=== PATIENT | male | born 1990 | race African-American/Black ===

== ENCOUNTER 2016-10-26 17:29 | Emergency (ER) | payer SELFPAY ==
[~2016-10-26] VITALS: Ht 175.3 cm; Wt 61.2 kg
[~2016-10-26 17:29] MED LIST: BUTA1CAP29 PO
[2016-10-26 18:18] VITALS: BP 158/113
[2016-10-26] MEDS ORDERED: ONDA4TAB10 SL (18:35)
--- NOTE | 2016-10-26 18:35 | PHYS DOC ---
Past Medical History Past Medical History: Hypothyroid Additional Past Medical Histor: HYPOTHYROIDISM Past Surgical History: No Surgical History Alcohol Use: Occasionally Drug Use: Marijuana, Opiates Adult General Chief Complaint Chief Complaint: NAUSEA/VOMITING/DIARRHA HPI HPI Patient is a 26 year old with history of hypothyroidism who presents with nausea and vomiting that occurred this morning. Patient denies any symptoms this afternoon. Denies any abdominal pain or diarrhea. He states he has chills. Review of Systems Review of Systems Constitutional: chills [] Eyes: Denies change in visual acuity, redness, or eye pain [] HENT: Denies nasal congestion or sore throat [] Respiratory: Denies cough or shortness of breath [] Cardiovascular: No additional information not addressed in HPI [] GI: nausea, vomiting, : Denies dysuria or hematuria [] Musculoskeletal: Denies back pain or joint pain [] Integument: Denies rash or skin lesions [] Neurologic: Denies headache, focal weakness or sensory changes [] Endocrine: Denies polyuria or polydipsia [] Allergies Allergies Allergies Coded Allergies Type Severity Reaction Last Updated Verified Penicillins Allergy Intermediate 01/02/14 Yes Physical Exam Physical Exam Constitutional: Well developed, well nourished, no acute distress, non-toxic appearance. [] HENT: Normocephalic, atraumatic, bilateral external ears normal, oropharynx moist, no oral exudates, nose normal. [] Eyes: PERRLA, EOMI, conjunctiva normal, no discharge. [] Neck: Normal range of motion, no tenderness, supple, no stridor. [] Cardiovascular:Heart rate regular rhythm, no murmur [] Lungs & Thorax: Bilateral breath sounds clear to auscultation [] Abdomen: Bowel sounds normal, soft, no tenderness, no masses, no pulsatile masses. [] Skin: Warm, dry, no erythema, no rash. [] Back: No tenderness, no CVA tenderness. [] Extremities: No tenderness, no cyanosis, no clubbing, ROM intact, no edema. [] Neurologic: Alert and oriented X 3, normal motor function, normal sensory function, no focal deficits noted. [] Psychologic: Affect normal, judgement normal, mood normal. [] Current Patient Data Vital Signs Vital Signs Date Time Temp Pulse Resp B/P (MAP) Pulse Ox O2 Delivery O2 Flow Rate FiO2 10/26/16 18:18 98.3 72 16 98 Room Air 98.3 EKG EKG [] Radiology/Procedures Radiology/Procedures [] Course & Med Decision Making Course & Med Decision Making Pertinent Labs and Imaging studies reviewed. (See chart for details) This is a well-appearing 26-year-old male patient who presents with nausea and vomiting that occurred this morning. No symptoms this afternoon. Symptoms are viral. Discharged with Zofran. Recommended he pushes fluids. Follow-up with PCP in 1-2 weeks. He requested a work note which was provided. Dragon Disclaimer Dragon Disclaimer This electronic medical record was generated, in whole or in part, using a voice recognition dictation system. Departure Departure Impression: Primary Impression: Nausea and vomiting Disposition: HOME, SELF-CARE Condition: STABLE Referrals: LORA DUMAS (PCP) follow with your doctor in one week Patient Instructions: Nausea and Vomiting, [id number] Additional Instructions: You were seen with symptoms consistent of a viral infection. Maintain very good hand hygiene. Push fluids. Take the prescribed nausea and vomiting medicine as needed. Follow-up with your doctor in 1-2 weeks. Scripts Ondansetron (ZOFRAN ODT) 4 Mg Tab.rapdis 1 TAB SL Q8HRS, #15 TAB Prov: JULITO CAMPOS APRN 10/26/16 Problem Qualifiers Primary Impression: Nausea and vomiting Vomiting type: unspecified Vomiting Intractability: non-intractable Qualified Codes: R11.2 - Nausea with vomiting, unspecified JULITO CAMPOS [place] Oct 26, 2016 18:35
== END 2016-10-26 18:44 | disposition home or self-care (01) ==
LOC: ER 17:29
DX: R11.2 Nausea with vomiting, unspecified (principal); E03.9 Hypothyroidism, unspecified; F12.10 Cannabis abuse, uncomplicated; F11.10 Opioid abuse, uncomplicated; Z88.0 Allergy status to penicillin
CPT/HCPCS: 99283

== ENCOUNTER 2016-12-02 16:30 | Emergency (ER) | payer SELFPAY ==
[~2016-12-02] VITALS: Ht 177.8 cm; Wt 61.2 kg
[~2016-12-02 16:30] MED LIST changes: +ONDA4TAB10 SL
[2016-12-02 17:43] LABS: BASO # 0.1 x10^3/uL (0.0-0.2); BASO % 1 % (0-3); EOS % 3 % (0-3); HEMATOCRIT 41.7 % (39.0-53.0); HEMOGLOBIN 13.9 g/dL (13.0-17.5); LYMPH # 1.8 x10^3/uL (1.0-4.8); LYMPH % 31 % (24-48); MEAN CORPUSCULAR HEMOGLOBIN 29 pg (25-35); MEAN CORPUSCULAR HGB CONC 33 g/dL (31-37); MEAN CORPUSCULAR VOLUME 88 fL (79-100); MONO % 7 % (0-9); NEUT % 58 % (31-73); PLATELET COUNT 183 x10^3/uL (140-400); RED BLOOD COUNT 4.73 x10^6/uL (4.30-5.70); RED CELL DISTRIBUTION WIDTH 16.2 % (11.5-14.5); WHITE BLOOD COUNT 5.9 x10^3/uL (4.0-11.0)
[2016-12-02 17:52] LABS: BILIRUBIN,URINE NEGATIVE (NEG); GLUCOSE,URINE NEGATIVE (NEG); NITRITE,URINE NEGATIVE (NEG); PH,URINE 7.5; PROTEIN,URINE 30 mg/dL (NEG-TRACE)
[2016-12-02 17:53] LABS: CALCIUM 9.1 mg/dL (8.5-10.1); CREATININE 1.3 mg/dL (0.7-1.3); GFR 79.5; POTASSIUM 3.9 mmol/L (3.5-5.1)
[2016-12-02 17:59] LABS: BARBITURATES NEG (NEG); BENZODIAZEPINES NEG (NEG); CANNABINOIDS POS (NEG); COCAINE POS (NEG); METHADONE NEG (NEG); OPIATES NEG (NEG); PHENCYCLIDINE NEG (NEG); RBC,URINE 0 /HPF (0-2)
[2016-12-02 17:59] LABS: ALBUMIN 4.5 g/dL (3.4-5.0); ALBUMIN/GLOBULIN RATIO 1.2 (1.0-1.7); TOTAL BILIRUBIN 0.4 mg/dL (0.2-1.0); TOTAL PROTEIN 8.3 g/dL (6.4-8.2)
[2016-12-02 18:00] LABS: BACTERIA,URINE FEW /HPF (0-FEW); SQUAMOUS EPITHELIAL CELL,UR OCC /LPF
--- NOTE | 2016-12-02 18:40 | PHYS DOC ---
Past Medical History Past Medical History: Hypothyroid Additional Past Medical Histor: HYPOTHYROIDISM Past Surgical History: No Surgical History Alcohol Use: Occasionally Drug Use: Marijuana Adult General Chief Complaint Chief Complaint: OTHER COMPLAINTS HPI HPI Patient is a 26 year old male who complains that he has had excessive sleepiness for about 1 month. 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 He states he thinks he gets plenty of sleep but sometimes he is just very sleepy during the day. He started this job more than 90 days ago, his complaints of sleepiness have just been for about 1 month. He denies history of seizures. He does have a medical history of hypothyroidism, he is supposed to be taking thyroid replacement but he has neglected to get his prescription filled and has not taken any for a month or more. Does smoke occasional marijuana and he also smokes cigarettes. He sometimes smokes pot to help him sleep. He denies other drugs. He denies any prescription medications. PCP Dr. Dumas Review of Systems Review of Systems Constitutional: Denies fever or chills , sometimes he is cold HENT: Denies nasal congestion or sore throat [] Respiratory: Denies cough or shortness of breath [] Cardiovascular: Denies chest pain GI: Denies abdominal pain, nausea, vomiting, bloody stools or diarrhea [] : Denies dysuria or hematuria [] Musculoskeletal: Denies back pain or joint pain [] Integument: Denies rash or skin lesions [] Neurologic: Denies headache, focal weakness or sensory changes [] Allergies Allergies Allergies Coded Allergies Type Severity Reaction Last Updated Verified Penicillins Allergy Intermediate 01/02/14 Yes Physical Exam Physical Exam Constitutional: Well developed, well nourished, no acute distress, non-toxic appearance. Alert, mentating normally, warm and dry. HENT: Normocephalic, atraumatic, bilateral external ears normal, nose normal. [] Eyes: conjunctiva normal, no discharge. [] Neck: Normal range of motion, no stridor. [] Cardiovascular:Heart rate regular rhythm, no murmur [] Lungs & Thorax: Bilateral breath sounds clear to auscultation [] Abdomen: Bowel sounds normal, soft, no tenderness, no masses, no pulsatile masses. [] Skin: Warm, dry, no erythema, no rash. [] Extremities: No tenderness, no cyanosis, no clubbing, ROM intact, no edema. [] Neurologic: Alert and oriented X 3, normal motor function, normal sensory function, no focal deficits noted. [] Current Patient Data Vital Signs Vital Signs Date Time Temp Pulse Resp B/P (MAP) Pulse Ox O2 Delivery O2 Flow Rate FiO2 12/02/16 18:50 66 153/114 (127) 98 Room Air 12/02/16 16:38 98.5 19 98.5 Lab Values Laboratory Tests Test 12/02/16 17:35 12/02/16 17:37 White Blood Count 5.9 x10^3/uL (4.0-11.0) Red Blood Count 4.73 x10^6/uL (4.30-5.70) Hemoglobin 13.9 g/dL (13.0-17.5) Hematocrit 41.7 % (39.0-53.0) Mean Corpuscular Volume 88 fL (79-100) Mean Corpuscular Hemoglobin 29 pg (25-35) Mean Corpuscular Hemoglobin Concent 33 g/dL (31-37) Red Cell Distribution Width 16.2 % (11.5-14.5) H Platelet Count 183 x10^3/uL (140-400) Neutrophils (%) (Auto) 58 % (31-73) Lymphocytes (%) (Auto) 31 % (24-48) Monocytes (%) (Auto) 7 % (0-9) Eosinophils (%) (Auto) 3 % (0-3) Basophils (%) (Auto) 1 % (0-3) Neutrophils # (Auto) 3.5 x10^3uL (1.8-7.7) Lymphocytes # (Auto) 1.8 x10^3/uL (1.0-4.8) Monocytes # (Auto) 0.4 x10^3/uL (0.0-1.1) Eosinophils # (Auto) 0.2 x10^3/uL (0.0-0.7) Basophils # (Auto) 0.1 x10^3/uL (0.0-0.2) Sodium Level 142 mmol/L (136-145) Potassium Level 3.9 mmol/L (3.5-5.1) Chloride Level 101 mmol/L (98-107) Carbon Dioxide Level 32 mmol/L (21-32) Anion Gap 9 (6-14) Blood Urea Nitrogen 14 mg/dL (8-26) Creatinine 1.3 mg/dL (0.7-1.3) Estimated GFR (Cockcroft-Gault) 79.5 BUN/Creatinine Ratio 11 (6-20) Glucose Level 95 mg/dL (70-99) Calcium Level 9.1 mg/dL (8.5-10.1) Total Bilirubin 0.4 mg/dL (0.2-1.0) Aspartate Amino Transferase (AST) 67 U/L (15-37) H Alanine Aminotransferase (ALT) 78 U/L (16-63) H Alkaline Phosphatase 67 U/L (46-116) Total Protein 8.3 g/dL (6.4-8.2) H Albumin 4.5 g/dL (3.4-5.0) Albumin/Globulin Ratio 1.2 (1.0-1.7) Thyroid Stimulating Hormone (TSH) 186.036 uIU/mL (0.358-3.74) H Urine Collection Type Unknown Urine Color Yellow Urine Clarity Cloudy Urine pH 7.5 Urine Specific [place] 1.025 Urine Protein 30 mg/dL (NEG-TRACE) Urine Glucose (UA) Negative mg/dL (NEG) Urine Ketones (Stick) Negative mg/dL (NEG) Urine Blood Negative (NEG) Urine Nitrite Negative (NEG) Urine Bilirubin Negative (NEG) Urine Urobilinogen Dipstick 1.0 mg/dL (0.2 mg/dL) Urine Leukocyte Esterase Negative (NEG) Urine RBC 0 /HPF (0-2) Urine WBC 1-4 /HPF (0-4) Urine Squamous Epithelial Cells Occ /LPF Urine Amorphous Sediment Present /HPF Urine Bacteria Few /HPF (0-FEW) Urine Mucus Slight /LPF Urine Opiates Screen Neg (NEG) Urine Methadone Screen Neg (NEG) Urine Barbiturates Neg (NEG) Urine Phencyclidine Screen Neg (NEG) Urine Amphetamine/Methamphetamine Neg (NEG) Urine Benzodiazepines Screen Neg (NEG) Urine Cocaine Screen Pos (NEG) Urine Cannabinoids Screen Pos (NEG) Urine Ethyl Alcohol Neg (NEG) Laboratory Tests 12/02/16 17:35 Laboratory Tests 12/02/16 17:35 EKG EKG [] Radiology/Procedures Radiology/Procedures [] Course & Med Decision Making Course & Med Decision Making Pertinent Labs and Imaging studies reviewed. (See chart for details) 26-year-old male presents with the complaint of excessive sleepiness and lethargy for about a month. He has not been taking his thyroid supplement for about that length of time. TSH is markedly elevated today. I strongly encouraged him to get started back on his thyroid replacement immediately. The patient appears stable for discharge to resume his prescribed thyroid replacement. He said he can pick it up at the drugstore. He does have a prescription that can be picked up. He is talkative, ambulatory, and does not appear acutely ill at this time. Additionally noted marijuana and cocaine in his drug screen. I encouraged him to stop using these substances which will contribute to his symptoms. See instructions for plan. [] Dragon Disclaimer Dragon Disclaimer This electronic medical record was generated, in whole or in part, using a voice recognition dictation system. Departure Departure Impression: Primary Impression: Tiredness Additional Impressions: Positive urine drug screen Hypothyroidism Disposition: 01 HOME, SELF-CARE Condition: STABLE Referrals: LORA DUMAS (PCP) Additional Instructions: Tests today showed that your thyroid level is very low. This can definitely cause tiredness. Start taking your thyroid medicine immediately as prescribed. Tests today in the emergency department showed that you have been using marijuana and cocaine. Both of these drugs can lead to tiredness. Marijuana can make you tired because it has sedative effects. Cocaine can make you tired because it is a stimulant, and it can overstimulate your system and make you tired that way. I recommend that you restart your thyroid medication that has been prescribed to you. I recommend that you stop using marijuana and cocaine for the above reasons. Drink plenty of fluids. Try to get plenty of sleep. See if these changes help make you less tired. Follow-up with your doctor. Problem Qualifiers TAYLOR FLOOD MD Dec 02, 2016 18:40
[2016-12-02 18:50] VITALS: BP 153/114
== END 2016-12-02 19:00 | disposition home or self-care (01) ==
LOC: ER 16:30
DX: R53.83 Other fatigue (principal); G47.10 Hypersomnia, unspecified; E03.9 Hypothyroidism, unspecified; F17.210 Nicotine dependence, cigarettes, uncomplicated; Z88.0 Allergy status to penicillin
CPT/HCPCS: 36415; 80053; 80307; 81001; 84443; 85025; 99284; G0479

== ENCOUNTER 2017-12-12 17:13 | Emergency (ER) | payer SELFPAY ==
[~2017-12-12] VITALS: Ht 177.8 cm; Wt 61.2 kg
[2017-12-12 18:49] VITALS: BP 146/105
--- NOTE | 2017-12-12 19:15 | PHYS DOC ---
Past Medical History Past Medical History: Hypothyroid Additional Past Medical Histor: HYPOTHYROIDISM Past Surgical History: No Surgical History Alcohol Use: Occasionally Drug Use: Marijuana Adult General Chief Complaint Chief Complaint: SKIN PROBLEM HPI HPI 27 y/o male presents for eval of pruritis from possible bugs "crawling on my skin" . He states whatever they were, "they were dropping from the ceiling of my car onto me" . He states today, if he held his arm up in the light he could see bugs and "skin crawling". Pt denies drug use. States he used a scabies cream that his mom had prior to coming to ED. Denies other concerns. Review of Systems Review of Systems Constitutional: Denies fever or chills [] Neurologic: Denies headache, focal weakness or sensory changes [] All other systems were reviewed and found to be within normal limits, except as documented in this note. Allergies Allergies Allergies Coded Allergies Type Severity Reaction Last Updated Verified Penicillins Allergy Intermediate 01/02/14 Yes Physical Exam Physical Exam Constitutional: Well developed, well nourished, no acute distress, non-toxic appearance. [] Skin: Warm, dry, no erythema, no rash. NO VISIBLE LESIONS/RASH/INSECT BITES ON BODY[] Back: No tenderness, no CVA tenderness. [] Extremities: No tenderness, no cyanosis, no clubbing, ROM intact, no edema. [] Neurologic: Alert and oriented X 3, normal motor function, normal sensory function, no focal deficits noted. [] Current Patient Data Vital Signs Vital Signs Date Time Temp Pulse Resp B/P (MAP) Pulse Ox O2 Delivery O2 Flow Rate FiO2 12/12/17 18:49 99.0 99 22 146/105 (119) 99 Room Air 99.0 EKG EKG [] Radiology/Procedures Radiology/Procedures [] Course & Med Decision Making Course & Med Decision Making no visible skin lesions or rash. Will treat pruritis with hydrocrotisone cream rx. f/u c pcp in 2-3 days Edmund Disclaimer Edmund Disclaimer This electronic medical record was generated, in whole or in part, using a voice recognition dictation system. Departure Departure Impression: Primary Impression: Generalized pruritus Disposition: 01 HOME, SELF-CARE Condition: STABLE Referrals: UNKNOWN PCP NAME (PCP) Patient Instructions: Pruritus Scripts Hydrocortisone (HYDROCORTISONE) 453.6 Gm Oint...g. 1 CHEVY TP BID, #30 GM 0 Refills Prov: RIC MENENDEZ APRN 12/12/17 RIC MENENDEZ APRN Dec 12, 2017 19:15
[2017-12-12] MEDS ORDERED: HYDR453.4 TP (19:17)
== END 2017-12-12 19:30 | disposition home or self-care (01) ==
LOC: ER 17:13
DX: L29.9 Pruritus, unspecified (principal); E03.9 Hypothyroidism, unspecified; Z88.0 Allergy status to penicillin
CPT/HCPCS: 99283